=== PATIENT | male | born 1970 | race Two or more races ===

== ENCOUNTER 2019-02-22 07:47 | Emergency (ER) | payer MEDICAID ==
--- NOTE | 2019-02-22 08:28 | EDM.PDOC ---
ED HPI GENERAL MEDICAL PROBLEM - General Chief Complaint: Abdominal Pain Stated Complaint: ABDOMINAL PAIN Time Seen by Provider: 02/22/19 08:25 - History of Present Illness INITIAL COMMENTS - FREE TEXT/NARRATIVE: HISTORY AND PHYSICAL: History of present illness: Patient is a 48-year-old male with history of H. pylori was diagnosed recently and is currently on medications presents with concern of abdominal pain this is epigastric similar to his prior episode with the diagnosis he denies vomiting fever chills chest pain shortness breath or other concern Review of systems: As per history of present illness and below otherwise all systems reviewed and negative. Past medical history: As per history of present illness and as reviewed below otherwise noncontributory. Surgical history: As per history of present illness and as reviewed below otherwise noncontributory. Social history: No reported history of drug or alcohol abuse. Family history: As per history of present illness and as reviewed below otherwise noncontributory. Physical exam: HEENT: Atraumatic, normocephalic, pupils reactive, negative for conjunctival pallor or scleral icterus, mucous membranes moist, throat clear, neck supple, nontender, trachea midline. Lungs: Clear to auscultation, breath sounds equal bilaterally, chest nontender. Heart: S1S2, regular, negative for clicks, rubs, or JVD. Abdomen: Soft, nondistended, nontender. Negative for masses or hepatosplenomegaly. Negative for costovertebral tenderness. Pelvis: Stable nontender. Genitourinary: Deferred. Rectal: Deferred. Extremities: Atraumatic, negative for cords or calf pain. Neurovascular unremarkable. Neuro: Awake, alert, oriented. Cranial nerves II through XII unremarkable. Cerebellum unremarkable. Motor and sensory unremarkable throughout. Exam nonfocal. Diagnostics: CBC CMP lipase Therapeutics: None Impression: #1 history of H. pylori infection #2 chronic intermittent abdominal pain Definitive disposition and diagnosis as appropriate pending reevaluation and review of above. epigastric Pain Score (Numeric/FACES): 9 - Related Data Allergies Allergy/AdvReac Type Severity Reaction Status Date / Time aloe vera [From Flexall] Allergy Hives Verified 02/22/19 07:50 codeine Allergy Hives Verified 02/22/19 07:50 Fish Containing Products Allergy Anaphylactic Verified 02/22/19 07:50 Shock fish derived Allergy Swelling Verified 02/22/19 07:50 ibuprofen Allergy Bleeding Verified 02/22/19 07:50 menthol [From Flexall] Allergy Hives Verified 02/22/19 07:50 methocarbamol Allergy Nausea and Verified 02/22/19 07:50 Vomiting NSAIDS (Non-Steroidal Allergy Bleeding Verified 02/22/19 07:50 Anti-Inflamma ondansetron [From Zofran] Allergy Anxiety Verified 02/22/19 07:50 Sulfa (Sulfonamide Allergy Rash Verified 02/22/19 07:50 Antibiotics) Home Meds: Home Meds Albuterol [Proair HFA] 1 dose INH ASDIRECTED PRN 02/18/18 [History] Fluticasone/Salmeterol [Advair 250-50 Diskus] 1 dose INH BID 02/18/18 [History] Ipratropium [Atrovent HFA] 1 dose INH QID 02/18/18 [History] LORazepam [Ativan] 0.5 mg PO ASDIRECTED PRN 07/05/18 [History] Losartan [Cozaar] 25 mg PO DAILY 07/05/18 [History] Simvastatin [Zocor] 10 mg PO BEDTIME 07/05/18 [History] Insulin Detemir [Levemir Flextouch] 35 units SUBCUT BEDTIME 07/20/18 [History] Ranitidine HCl [Zantac] 150 mg PO DAILY 07/20/18 [History] Acetaminophen/HYDROcodone [[place] 325-5 MG] 1 dose PO Q4H #30 tablet 12/25/18 [Rx ] Past Medical History HEENT History: Reports: Other (See Below) Other HEENT History: reading glasses Cardiovascular History: Reports: High Cholesterol, Hypertension Respiratory History: Reports: Asthma, COPD, Pneumonia, Recurrent Gastrointestinal History: Reports: Cirrhosis, GERD, Irritable Bowel Syndrome Other Gastrointestinal History: hx of stomach ulcer Genitourinary History: Reports: None Musculoskeletal History: Reports: Arthritis, Back Pain, Chronic Neurological History: Reports: Migraines Psychiatric History: Reports: Anxiety, Bipolar, Depression, PTSD, Suicide Attempt Endocrine/Metabolic History: Reports: Diabetes, Type II Hematologic History: Reports: None Immunologic History: Reports: None Oncologic (Cancer) History: Reports: None Dermatologic History: Reports: None - Infectious Disease History Infectious Disease History: Reports: None - Past Surgical History Head Surgeries/Procedures: Reports: None HEENT Surgical History: Reports: Oral Surgery Cardiovascular Surgical History: Reports: None Respiratory Surgical History: Reports: None GI Surgical History: Reports: Colonoscopy Male Surgical History: Reports: None Endocrine Surgical History: Reports: None Neurological Surgical History: Reports: None Musculoskeletal Surgical History: Reports: Other (See Below) Other Musculoskeletal Surgeries/Procedures:: hx lt thumb pinning Oncologic Surgical History: Reports: None Dermatological Surgical History: Reports: None Social & Family History - Family History Family Medical History: Noncontributory - Tobacco Use Smoking Status *Q: Current Every Day Smoker Years of Tobacco use: 32 Packs/Tins Daily: 0.4 - Caffeine Use Caffeine Use: Reports: None - Recreational Drug Use Recreational Drug Use: No ED ROS GENERAL - Review of Systems Review Of Systems: ROS reveals no pertinent complaints other than HPI. ED EXAM, GENERAL - Physical Exam Exam: See Below (See dictation) Course - Vital Signs Last Recorded V/S: Last Vital Signs Temp 36.0 C 02/22/19 07:50 Pulse 80 02/22/19 07:50 Resp 18 02/22/19 07:50 BP 170/91 H 02/22/19 07:50 Pulse Ox 96 02/22/19 07:50 - Orders/Labs/Meds Orders: Active Orders 24 hr Category Date Time Status CBC WITH AUTO DIFF [HEME] Stat Lab 02/22/19 08:18 Received COMPREHENSIVE METABOLIC PN,CMP [CHEM] Stat Lab 02/22/19 08:18 Received LIPASE [CHEM] Stat Lab 02/22/19 08:18 Received Departure - Departure Time of Disposition: 08:27 Disposition: Home, Self-Care 01 Condition: Good Clinical Impression: Abdominal pain, History of Helicobacter pylori infection - Discharge Information Referrals: Kim Goodwin [Primary Care Provider] - Additional Instructions: The following information is given to patients seen in the emergency department who are being discharged to home. This information is to outline your options for follow-up care. We provide all patients seen in our emergency department with a follow-up referral. The need for follow-up, as well as the timing and circumstances, are variable depending upon the specifics of your emergency department visit. If you don't have a primary care physician on staff, we will provide you with a referral. We always advise you to contact your personal physician following an emergency department visit to inform them of the circumstance of the visit and for follow-up with them and/or the need for any referrals to a consulting specialist. The emergency department will also refer you to a specialist when appropriate. This referral assures that you have the opportunity for followup care with a specialist. All of these measure are taken in an effort to provide you with optimal care, which includes your followup. Under all circumstances we always encourage you to contact your private physician who remains a resource for coordinating your care. When calling for followup care, please make the office aware that this follow-up is from your recent emergency room visit. If for any reason you are refused follow-up, please contact the [facility] emergency department at and asked to speak to the emergency department charge nurse. [facility] - General Surgery Professional Building [address] [place] [address], [address] [place] [address] Follow-up primary medical doctor general surgery as discussed gastroenterology referral as discussed continue current medications return as needed as discussed - My Orders Last 24 Hours: My Active Orders 02/22/19 08:18 CBC WITH AUTO DIFF [HEME] Stat COMPREHENSIVE METABOLIC PN,CMP [CHEM] Stat LIPASE [CHEM] Stat - Assessment/Plan Last 24 Hours: My Active Orders 02/22/19 08:18 CBC WITH AUTO DIFF [HEME] Stat COMPREHENSIVE METABOLIC PN,CMP [CHEM] Stat LIPASE [CHEM] Stat
[2019-02-22 08:48] LABS: CHLORIDE,CL 104 mmol/L (98-107); SODIUM,NA 138 mmol/L (136-148)
== END 2019-02-22 09:15 | disposition home or self-care (01) ==
LOC: MW.ED 07:47
DX: R10.13 Epigastric pain (principal); E78.00 Pure hypercholesterolemia, unspecified; I10 Essential (primary) hypertension; J44.9 Chronic obstructive pulmonary disease, unspecified; E11.9 Type 2 diabetes mellitus without complications; F17.210 Nicotine dependence, cigarettes, uncomplicated; Z88.8 Allergy status to other drugs, medicaments and biological substances; Z88.2 Allergy status to sulfonamides; Z79.899 Other long term (current) drug therapy; Z79.4 Long term (current) use of insulin; Z86.19 Personal history of other infectious and parasitic diseases
CPT/HCPCS: 36415; 80053; 83690; 85025; 99284

== ENCOUNTER 2022-05-18 16:24 | Emergency (ER) | payer OTHER, MEDICAID ==
[2022-05-18] MEDS ORDERED: Dexamethasone 10 MG/ML SDV IM STA (16:43)
[2022-05-18] MEDS ORDERED: Ketorolac 30 MG/ML SDV IM ONE (16:43)
[2022-05-18] MEDS ORDERED: Acetaminophen/oxyCODONE 325-5 MG Tab PO ONE (18:37)
== END 2022-05-18 20:04 | disposition home or self-care (01) ==
LOC: MW.ED 16:24
DX: S16.1XXA Strain of muscle, fascia and tendon at neck level, initial encounter (principal); E78.00 Pure hypercholesterolemia, unspecified; I10 Essential (primary) hypertension; J44.9 Chronic obstructive pulmonary disease, unspecified; E11.9 Type 2 diabetes mellitus without complications; Z91.048 Other nonmedicinal substance allergy status; Z88.5 Allergy status to narcotic agent; Z91.013 Allergy to seafood; Z88.8 Allergy status to other drugs, medicaments and biological substances; Z88.2 Allergy status to sulfonamides; Z79.4 Long term (current) use of insulin; Z79.899 Other long term (current) drug therapy; W22.09XA Striking against other stationary object, initial encounter
CPT/HCPCS: 72125; 96372; 99283; A9270; J1100; J1885; J3360; 99284

== ENCOUNTER 2023-01-14 00:46 | Emergency (ER) | payer MEDICAID ==
[2023-01-14 02:44] LABS: CARBON DIOXIDE,CO2 24.6 mmol/L (21.0-32.0); POTASSIUM,K 3.7 mmol/L (3.5-5.1)
[2023-01-14] MEDS ORDERED: Acetaminophen/HYDROcodone 325-5 MG Tab PO ONE (04:23)
== END 2023-01-14 04:27 | disposition home or self-care (01) ==
LOC: MW.ED 00:46
DX: M54.9 Dorsalgia, unspecified (principal); M54.2 Cervicalgia; R06.02 Shortness of breath; E78.00 Pure hypercholesterolemia, unspecified; I10 Essential (primary) hypertension; J44.9 Chronic obstructive pulmonary disease, unspecified; K21.9 Gastro-esophageal reflux disease without esophagitis; E11.9 Type 2 diabetes mellitus without complications; Z72.0 Tobacco use; Z88.8 Allergy status to other drugs, medicaments and biological substances; Z88.6 Allergy status to analgesic agent; Z91.048 Other nonmedicinal substance allergy status; Z88.5 Allergy status to narcotic agent; Z88.2 Allergy status to sulfonamides; Z91.013 Allergy to seafood; Z79.899 Other long term (current) drug therapy; Z79.4 Long term (current) use of insulin
CPT/HCPCS: 36415; 80053; 81003; 83690; 85025; 99284; A9270; 99283

== ENCOUNTER 2023-04-06 16:23 | Emergency (ER) | payer MEDICAID | END 2023-04-06 17:57 | disposition home or self-care (01) | LOC: MW.ED 16:23 | DX: M54.50 Low back pain, unspecified (principal); G89.29 Other chronic pain; Z76.0 Encounter for issue of repeat prescription; J44.9 Chronic obstructive pulmonary disease, unspecified; E78.00 Pure hypercholesterolemia, unspecified; I10 Essential (primary) hypertension; E11.9 Type 2 diabetes mellitus without complications; K21.9 Gastro-esophageal reflux disease without esophagitis; Z79.4 Long term (current) use of insulin; Z88.5 Allergy status to narcotic agent; Z91.013 Allergy to seafood; Z88.8 Allergy status to other drugs, medicaments and biological substances; Z91.048 Other nonmedicinal substance allergy status; Z88.2 Allergy status to sulfonamides; Z79.899 Other long term (current) drug therapy | CPT/HCPCS: 99283 ==

== ENCOUNTER 2023-04-12 10:05 | Emergency (ER) | payer MEDICAID | END 2023-04-12 11:11 | disposition home or self-care (01) | LOC: MW.ED 10:05 | DX: K04.7 Periapical abscess without sinus (principal); E11.9 Type 2 diabetes mellitus without complications; J44.9 Chronic obstructive pulmonary disease, unspecified; E78.00 Pure hypercholesterolemia, unspecified; I10 Essential (primary) hypertension; Z79.4 Long term (current) use of insulin; Z79.899 Other long term (current) drug therapy; Z88.6 Allergy status to analgesic agent; Z88.8 Allergy status to other drugs, medicaments and biological substances; Z88.5 Allergy status to narcotic agent; Z91.013 Allergy to seafood; Z88.2 Allergy status to sulfonamides | CPT/HCPCS: 99282 ==

== ENCOUNTER 2023-05-07 14:10 | Emergency (ER) | payer MEDICAID ==
[2023-05-07 14:57] LABS: APPEARANCE,URINE CLEAR; BILIRUBIN,URINE NEGATIVE (NEGATIVE); COLOR,URINE YELLOW; GLUCOSE,URINE >=1000 mg/dL (NEGATIVE); KETONES,URINE NEGATIVE (NEGATIVE); LEUKOCYTE ESTERASE,URINE NEGATIVE (NEGATIVE); NITRITE,URINE NEGATIVE (NEGATIVE); OCCULT BLOOD,URINE NEGATIVE (NEGATIVE); PH,URINE 5.5 (5.0-8.0); PROTEIN,URINE NEGATIVE (NEGATIVE); UROBILINOGEN,URINE 0.2 EU/dL (<2.0)
[2023-05-07 15:04] LABS: AMPHETAMINES SCREEN, URINE NEGATIVE (CUTOFF=500); BARBITURATE SCREEN,URINE NEGATIVE (CUTOFF=200); BENZODIAZEPINES SCREEN,URINE NEGATIVE (CUTOFF=150); BUPRENORPHINE SCREEN,URINE NEGATIVE (CUTOFF=10); METHADONE SCREEN, URINE NEGATIVE (CUTOFF=200); METHAMPHETAMINES SCREEN, URINE NEGATIVE (CUTOFF=500); OXYCODONE SCREEN,URINE NEGATIVE (CUT0FF=100); PCP SCREEN,URINE NEGATIVE (CUTOFF=25); PROPOXYPHENE SCREEN,URINE NEGATIVE (CUTOFF=300); THC SCREEN,URINE 20 NG/ML NEGATIVE (CUTOFF=50)
[2023-05-07] MEDS ORDERED: traMADol 50 MG Tab PO STA (16:26)
== END 2023-05-07 16:56 | disposition home or self-care (01) ==
LOC: MW.ED 14:10
DX: M54.50 Low back pain, unspecified (principal); B00.9 Herpesviral infection, unspecified; G89.29 Other chronic pain; Z76.0 Encounter for issue of repeat prescription; I10 Essential (primary) hypertension; E78.5 Hyperlipidemia, unspecified; E78.00 Pure hypercholesterolemia, unspecified; Z88.5 Allergy status to narcotic agent; Z91.013 Allergy to seafood; Z88.2 Allergy status to sulfonamides; Z88.8 Allergy status to other drugs, medicaments and biological substances; Z79.899 Other long term (current) drug therapy
CPT/HCPCS: 80305; 81003; 82947; 99283; A9270

== ENCOUNTER 2023-06-17 21:01 | Emergency (ER) | payer OTHER, MEDICAID ==
[2023-06-17] MEDS ORDERED: Tetracaine HCl/PF 0.5% 4 ML Bottle EYERT ONE (21:31)
[2023-06-17] MEDS ORDERED: Erythromycin Base 0.5% Ophth Oint 1 GM Tube EYERT ONE (21:37)
== END 2023-06-17 21:52 | disposition home or self-care (01) ==
LOC: MW.ED 21:01
DX: H10.9 Unspecified conjunctivitis (principal); E78.00 Pure hypercholesterolemia, unspecified; I10 Essential (primary) hypertension; J44.9 Chronic obstructive pulmonary disease, unspecified; E11.9 Type 2 diabetes mellitus without complications; F17.210 Nicotine dependence, cigarettes, uncomplicated; Z91.048 Other nonmedicinal substance allergy status; Z88.5 Allergy status to narcotic agent; Z88.1 Allergy status to other antibiotic agents; Z88.8 Allergy status to other drugs, medicaments and biological substances; Z91.013 Allergy to seafood; Z88.6 Allergy status to analgesic agent; Z79.51 Long term (current) use of inhaled steroids; Z79.899 Other long term (current) drug therapy
CPT/HCPCS: 99283; A9270

== ENCOUNTER 2023-08-20 15:21 | Emergency (ER) | payer MEDICAID ==
[2023-08-20] MEDS ORDERED: Amoxicillin 500 MG Cap PO ONE (17:34)
== END 2023-08-20 17:47 | disposition home or self-care (01) ==
LOC: MW.ED 15:21
DX: H66.91 Otitis media, unspecified, right ear (principal); H72.91 Unspecified perforation of tympanic membrane, right ear; I10 Essential (primary) hypertension; E78.00 Pure hypercholesterolemia, unspecified; J44.9 Chronic obstructive pulmonary disease, unspecified; K21.9 Gastro-esophageal reflux disease without esophagitis; M19.90 Unspecified osteoarthritis, unspecified site; E11.9 Type 2 diabetes mellitus without complications; Z88.8 Allergy status to other drugs, medicaments and biological substances; Z88.5 Allergy status to narcotic agent; Z91.048 Other nonmedicinal substance allergy status; Z91.013 Allergy to seafood; Z88.2 Allergy status to sulfonamides; Z88.6 Allergy status to analgesic agent; Z79.899 Other long term (current) drug therapy; Z79.4 Long term (current) use of insulin
CPT/HCPCS: 99283; A9270

== ENCOUNTER 2024-07-20 10:27 | Emergency (ER) | payer MEDICAID ==
[2024-07-20 11:28] LABS: BASOPHILS ABSOLUTE AUTO 0.05 K/uL (0.00-0.20); BASOPHILS PERCENT AUTO 0.6 % (0.0-1.0); EOSINOPHILS ABSOLUTE AUTO 0.18 K/uL (0.00-0.45); EOSINOPHILS PERCENT AUTO 2.3 % (0.0-6.0); HEMATOCRIT 43.6 % (42.0-52.0); IMMATURE GRAN ABSOLUTE AUTO 0.03 K/uL (0.00-0.05); IMMATURE GRAN PERCENT AUTO 0.4 % (0.0-0.4); LYMPHOCYTES ABSOLUTE AUTO 2.08 K/uL (1.00-4.80); LYMPHOCYTES PERCENT AUTO 26.1 % (24.0-44.0); MEAN CORPUSCULAR VOLUME 83.2 fL (83.0-99.0); MEAN PLATELET VOLUME 9.1 fL (9.4-12.4); MONOCYTES ABSOLUTE AUTO 0.67 K/uL (0.00-0.80); MONOCYTES PERCENT AUTO 8.4 % (0.0-8.0); NEUTROPHILS ABSOLUTE AUTO 4.96 K/uL (1.80-7.70); NEUTROPHILS PERCENT AUTO 62.2 % (41.0-71.0); PLATELET COUNT,PLT 282 K/uL (150-400); RED BLOOD CELL COUNT 5.24 M/uL (4.52-5.90); WHITE BLOOD CELL COUNT,WBC 7.97 K/uL (3.9-11.3)
[2024-07-20 12:09] LABS: HEMOGLOBIN 14.6 g/dL (14.0-18.0); MEAN CORPUSCULAR HEMOGLOBIN 27.9 pg (28.0-32.0)
[2024-07-20 12:10] LABS: MEAN CORPUSCULAR HGB CONC 33.6 g/dL (32.0-36.0)
[2024-07-20 12:22] LABS: A/G RATIO 1.1 (0.9-1.6); ALBUMIN 3.8 g/dL (3.4-5.0); BILIRUBIN TOTAL 0.4 mg/dL (0.2-1.0); CALCIUM 9.8 mg/dL (8.5-10.1); CARBON DIOXIDE,CO2 25.5 mmol/L (21.0-32.0); CREATININE 0.9 mg/dL (0.8-1.3); EST CRCL DRUG DOSING (CG) 90.78 mL/min; POTASSIUM,K 3.7 mmol/L (3.5-5.1); PROTEIN TOTAL,TP 7.2 g/dL (6.4-8.2)
== END 2024-07-20 13:16 | disposition home or self-care (01) ==
LOC: MW.ED 10:27
DX: E11.65 Type 2 diabetes mellitus with hyperglycemia (principal); I10 Essential (primary) hypertension; J44.9 Chronic obstructive pulmonary disease, unspecified; E78.00 Pure hypercholesterolemia, unspecified; K21.9 Gastro-esophageal reflux disease without esophagitis; Z79.899 Other long term (current) drug therapy; Z79.4 Long term (current) use of insulin; Z79.84 Long term (current) use of oral hypoglycemic drugs; Z91.048 Other nonmedicinal substance allergy status; Z88.5 Allergy status to narcotic agent; Z91.013 Allergy to seafood; Z75.8 Other problems related to medical facilities and other health care; Z88.2 Allergy status to sulfonamides; Z88.3 Allergy status to other anti-infective agents; Z88.8 Allergy status to other drugs, medicaments and biological substances; Z76.0 Encounter for issue of repeat prescription
CPT/HCPCS: 36415; 80053; 82009; 82947; 83690; 84484; 85025; 99284

== ENCOUNTER 2025-02-09 21:42 | Emergency (ER) | payer MEDICAID ==
[2025-02-09] MEDS: Albuterol/Ipratropium 3.0-0.5 MG/3 ML Neb Soln NEB ONE (22:20)
[2025-02-09] MEDS: methylPREDNISolone Sodium Succinate 125 MG/2 ML SDV IVPUSH ONE (22:20)
[2025-02-09] MEDS: Sodium Chloride 0.9% 1,000 ML IV ONE (22:20)
[2025-02-09 22:24] LABS: BASOPHILS ABSOLUTE AUTO 0.05 K/uL (0.00-0.20); BASOPHILS PERCENT AUTO 0.4 % (0.0-1.0); EOSINOPHILS ABSOLUTE AUTO 0.05 K/uL (0.00-0.45); EOSINOPHILS PERCENT AUTO 0.4 % (0.0-6.0); HEMATOCRIT 43.7 % (42.0-52.0); HEMOGLOBIN 15.4 g/dL (14.0-18.0); IMMATURE GRAN ABSOLUTE AUTO 0.04 K/uL (0.00-0.05); IMMATURE GRAN PERCENT AUTO 0.4 % (0.0-0.4); LYMPHOCYTES ABSOLUTE AUTO 0.96 K/uL (1.00-4.80); LYMPHOCYTES PERCENT AUTO 8.4 % (24.0-44.0); MEAN CORPUSCULAR HEMOGLOBIN 30.1 pg (28.0-32.0); MEAN CORPUSCULAR HGB CONC 35.2 g/dL (32.0-36.0); MEAN CORPUSCULAR VOLUME 85.5 fL (83.0-99.0); MEAN PLATELET VOLUME 8.9 fL (9.4-12.4); MONOCYTES ABSOLUTE AUTO 0.59 K/uL (0.00-0.80); MONOCYTES PERCENT AUTO 5.2 % (0.0-8.0); NEUTROPHILS ABSOLUTE AUTO 9.68 K/uL (1.80-7.70); NEUTROPHILS PERCENT AUTO 85.2 % (41.0-71.0); PLATELET COUNT,PLT 231 K/uL (150-400); RED BLOOD CELL COUNT 5.11 M/uL (4.52-5.90); WHITE BLOOD CELL COUNT,WBC 11.37 K/uL (3.9-11.3)
[2025-02-09 22:26] LABS: APPEARANCE,URINE CLEAR; BILIRUBIN,URINE NEGATIVE (NEGATIVE); COLOR,URINE YELLOW; GLUCOSE,URINE >=1000 mg/dL (NEGATIVE); KETONES,URINE TRACE mg/dL (NEGATIVE); LEUKOCYTE ESTERASE,URINE NEGATIVE (NEGATIVE); NITRITE,URINE NEGATIVE (NEGATIVE); OCCULT BLOOD,URINE NEGATIVE (NEGATIVE); PH,URINE 5.5 (5.0-8.0); PROTEIN,URINE NEGATIVE (NEGATIVE); UROBILINOGEN,URINE 0.2 EU/dL (<2.0)
[2025-02-09 22:42] LABS: HEMOGLOBIN A1C 9.8 %; INR 1.01 (0.86-1.11)
[2025-02-09 22:59] LABS: ALANINE AMINOTRANSFERASE,ALT 39 IU/L (14-63); ALBUMIN 3.6 g/dL (3.4-5.0); ALKALINE PHOSPHATASE 150 U/L (46-116); ASPARTATE AMNIOTRANSFERASE,AST 23 IU/L (15-37); BILIRUBIN TOTAL 0.4 mg/dL (0.2-1.0); BLOOD UREA NITROGEN,BUN 14 mg/dL (7.0-18.0); CALCIUM 8.6 mg/dL (8.5-10.1); CARBON DIOXIDE,CO2 23.4 mmol/L (21.0-32.0); CHLORIDE,CL 102 mmol/L (98-107); ESTIMATED GFR 89 mL/min (>60); GLUCOSE RANDOM 374 mg/dL (74-106); PRO B-TYPE NATRIUR PEPT,BNPPRO 31 pg/mL (0-125); PROTEIN TOTAL,TP 7.2 g/dL (6.4-8.2); SODIUM,NA 136 mmol/L (136-148)
[2025-02-10 00:23] LABS: CORONAVIRUS COVID-19 NAA NEGATIVE (NEGATIVE); INFLUENZA A NAA NEGATIVE (NEGATIVE); INFLUENZA B NAA NEGATIVE (NEGATIVE); RESPIRATORY SYNCYTIAL VIR NAA NEGATIVE (NEGATIVE)
[2025-02-10] MEDS: Sodium Chloride 0.9% 1,000 ML IV ONE (00:37)
[2025-02-10] MEDS: cefTRIAXone 2 GM in Water For Injection, Sterile 20 ML IVPUSH ONE (00:38)
[2025-02-10] MEDS: Doxycycline 100 MG in Sodium Chloride 0.9% 100 ML IV ONE (00:43)
[2025-02-10] MEDS: Acetaminophen 500 MG Tab PO ONE (01:13)
[2025-02-10] MEDS ORDERED: Iopamidol 755 MG/ML 500 ML Multipack Bottle IVPUSH ONE (01:26)
== END 2025-02-10 01:45 | disposition left against medical advice (07) ==
LOC: MW.ED 21:42
DX: J18.9 Pneumonia, unspecified organism (principal); E11.65 Type 2 diabetes mellitus with hyperglycemia; E86.0 Dehydration; R04.2 Hemoptysis; E78.00 Pure hypercholesterolemia, unspecified; I10 Essential (primary) hypertension; J44.89 Other specified chronic obstructive pulmonary disease; K21.9 Gastro-esophageal reflux disease without esophagitis; Z91.018 Allergy to other foods; Z88.5 Allergy status to narcotic agent; Z91.013 Allergy to seafood; Z88.2 Allergy status to sulfonamides; Z88.8 Allergy status to other drugs, medicaments and biological substances; Z88.6 Allergy status to analgesic agent; Z79.51 Long term (current) use of inhaled steroids; Z79.899 Other long term (current) drug therapy; Z79.4 Long term (current) use of insulin
CPT/HCPCS: 0241U; 36415; 71045; 80053; 81003; 83036; 83735; 83880; 85025; 85610; 87040; 87651; 96361; 96365; 96375; 99285; A9270; J0696; J2919; J3490; J7030; J7620; 99284

== ENCOUNTER 2025-07-07 11:55 | Emergency (ER) | payer MEDICAID ==
[2025-07-07] MEDS: Benzocaine 20% Topical Spray UD MUCMEM ONE (13:14)
[2025-07-07] MEDS: Lidocaine 2% Viscous Solution 15 ML UD PO ONE (13:15)
== END 2025-07-07 13:32 | disposition home or self-care (01) ==
LOC: MW.ED 11:55
DX: K02.9 Dental caries, unspecified (principal); I10 Essential (primary) hypertension; E11.9 Type 2 diabetes mellitus without complications; Z88.5 Allergy status to narcotic agent; Z88.2 Allergy status to sulfonamides; Z79.4 Long term (current) use of insulin; Z79.899 Other long term (current) drug therapy
CPT/HCPCS: 99282; A9270; J3490; 99283

== ENCOUNTER 2025-09-13 02:37 | Emergency (ER) | payer MEDICAID ==
[2025-09-13 03:05] LABS: BASOPHILS ABSOLUTE AUTO 0.04 K/uL (0.00-0.20); BASOPHILS PERCENT AUTO 0.6 % (0.0-1.0); EOSINOPHILS ABSOLUTE AUTO 0.17 K/uL (0.00-0.45); EOSINOPHILS PERCENT AUTO 2.4 % (0.0-6.0); IMMATURE GRAN ABSOLUTE AUTO 0.01 K/uL (0.00-0.05); IMMATURE GRAN PERCENT AUTO 0.1 % (0.0-0.4); LYMPHOCYTES ABSOLUTE AUTO 2.11 K/uL (1.00-4.80); LYMPHOCYTES PERCENT AUTO 29.4 % (24.0-44.0); MEAN PLATELET VOLUME 8.8 fL (9.4-12.4); MONOCYTES ABSOLUTE AUTO 0.61 K/uL (0.00-0.80); MONOCYTES PERCENT AUTO 8.5 % (0.0-8.0); NEUTROPHILS ABSOLUTE AUTO 4.23 K/uL (1.80-7.70); NEUTROPHILS PERCENT AUTO 59.0 % (41.0-71.0); NRBC ABSOLUTE 0.00 K/uL (0.00-0.02); NRBC PERCENT 0.0 /100WBC (0.0-0.2); PLATELET COUNT,PLT 237 K/uL (150-400); RED BLOOD CELL COUNT 4.36 M/uL (4.52-5.90); WHITE BLOOD CELL COUNT,WBC 7.17 K/uL (3.9-11.3)
[2025-09-13] MEDS: Ketorolac 30 MG/ML SDV IVPUSH ONE (03:28)
[2025-09-13 04:02] LABS: APPEARANCE,URINE CLEAR; GLUCOSE,URINE NEGATIVE (NEGATIVE); OCCULT BLOOD,URINE NEGATIVE (NEGATIVE)
[2025-09-13 04:45] LABS: A/G RATIO 1.0 (0.9-1.6); ALANINE AMINOTRANSFERASE,ALT 32.0 IU/L (14-63); ASPARTATE AMNIOTRANSFERASE,AST 17.0 IU/L (15-37); BILIRUBIN TOTAL 0.2 mg/dL (0.2-1.0); BLOOD UREA NITROGEN,BUN 24.0 mg/dL (7.0-18.0); CARBON DIOXIDE,CO2 22.8 mmol/L (21.0-32.0); CHLORIDE,CL 107.0 mmol/L (98-107); CREATININE 0.9 mg/dL (0.8-1.3); EST CRCL DRUG DOSING (CG) 80.67 mL/min; GLUCOSE RANDOM 232.0 mg/dL (74-106); POTASSIUM,K 4.2 mmol/L (3.5-5.1); PROTEIN TOTAL,TP 6.9 g/dL (6.4-8.2); SODIUM,NA 140.0 mmol/L (136-148)
[2025-09-13 04:47] LABS: ESTIMATED GFR 101.0 mL/min (>60)
[2025-09-13] MEDS: Iopamidol 755 MG/ML 500 ML Multipack Bottle IVPUSH STA (04:59)
== END 2025-09-13 05:39 | disposition home or self-care (01) ==
LOC: MW.ED 02:37
DX: R10.10 Upper abdominal pain, unspecified (principal); M54.9 Dorsalgia, unspecified; I10 Essential (primary) hypertension; E78.00 Pure hypercholesterolemia, unspecified; E11.9 Type 2 diabetes mellitus without complications; J44.9 Chronic obstructive pulmonary disease, unspecified; J45.909 Unspecified asthma, uncomplicated; F17.200 Nicotine dependence, unspecified, uncomplicated; M19.90 Unspecified osteoarthritis, unspecified site; Z79.899 Other long term (current) drug therapy; Z79.4 Long term (current) use of insulin; Z88.8 Allergy status to other drugs, medicaments and biological substances; Z91.013 Allergy to seafood; Z88.2 Allergy status to sulfonamides; Z88.5 Allergy status to narcotic agent
CPT/HCPCS: 36415; 71045; 74177; 80053; 81003; 83690; 84484; 85025; 93005; 96374; 96375; 99285; A9270; J1885; J3360; Q9967; 99283

== ENCOUNTER 2025-09-16 22:16 | Inpatient (IN) | payer MEDICAID ==
[2025-09-17 00:29] LABS: APPEARANCE,URINE CLEAR; GLUCOSE,URINE >=1000 mg/dL (NEGATIVE); OCCULT BLOOD,URINE NEGATIVE (NEGATIVE)
[2025-09-17] MEDS: Ondansetron 4 MG Tab.DIS PO ONE (00:39)
[2025-09-17] MEDS: Dexamethasone Sod Phos Preservative Free 10 MG/ML Vial IVPUSH ONE (00:39)
[2025-09-17 01:10] LABS: BASOPHILS ABSOLUTE AUTO 0.03 K/uL (0.00-0.20); BASOPHILS PERCENT AUTO 0.3 % (0.0-1.0); EOSINOPHILS ABSOLUTE AUTO 0.10 K/uL (0.00-0.45); EOSINOPHILS PERCENT AUTO 0.9 % (0.0-6.0); IMMATURE GRAN ABSOLUTE AUTO 0.02 K/uL (0.00-0.05); IMMATURE GRAN PERCENT AUTO 0.2 % (0.0-0.4); LYMPHOCYTES ABSOLUTE AUTO 2.27 K/uL (1.00-4.80); LYMPHOCYTES PERCENT AUTO 21.2 % (24.0-44.0); MEAN PLATELET VOLUME 8.6 fL (9.4-12.4); MONOCYTES ABSOLUTE AUTO 0.53 K/uL (0.00-0.80); MONOCYTES PERCENT AUTO 5.0 % (0.0-8.0); NEUTROPHILS ABSOLUTE AUTO 7.75 K/uL (1.80-7.70); NEUTROPHILS PERCENT AUTO 72.4 % (41.0-71.0); NRBC ABSOLUTE 0.00 K/uL (0.00-0.02); NRBC PERCENT 0.0 /100WBC (0.0-0.2); PLATELET COUNT,PLT 279 K/uL (150-400); RED BLOOD CELL COUNT 5.24 M/uL (4.52-5.90); WHITE BLOOD CELL COUNT,WBC 10.70 K/uL (3.9-11.3)
[2025-09-17 01:35] LABS: A/G RATIO 0.9 (0.9-1.6); ALANINE AMINOTRANSFERASE,ALT 41 IU/L (14-63); ASPARTATE AMNIOTRANSFERASE,AST 14 IU/L (15-37); BILIRUBIN TOTAL 0.2 mg/dL (0.2-1.0); BLOOD UREA NITROGEN,BUN 26 mg/dL (7.0-18.0); CARBON DIOXIDE,CO2 19.5 mmol/L (21.0-32.0); CHLORIDE,CL 103 mmol/L (98-107); CREATININE 0.9 mg/dL (0.8-1.3); GLUCOSE RANDOM 227 mg/dL (74-106); POTASSIUM,K 4.0 mmol/L (3.5-5.1); PROTEIN TOTAL,TP 7.8 g/dL (6.4-8.2); SODIUM,NA 136 mmol/L (136-148)
[2025-09-17 02:00] LABS: ESTIMATED GFR 101 mL/min (>60)
[2025-09-17] MEDS ORDERED: Naloxone 0.4 MG/ML SDV IVPUSH PRN (02:08)
[2025-09-17] MEDS ORDERED: 50% Dextrose in Water 50 ML Syringe IVPUSH PRN (02:11)
[2025-09-17] MEDS: Insulin Glargine,Human Rec. Analog 100 Units/ML 3 ML Pen SUBCUT STA (08:40)
[2025-09-17 09:40] LABS: APPEARANCE,URINE CLEAR; GLUCOSE,URINE >=1000 mg/dL (NEGATIVE); OCCULT BLOOD,URINE NEGATIVE (NEGATIVE)
== END 2025-09-17 14:44 | disposition home or self-care (01) | DRG 552 ==
LOC: MW.ED 22:16 → MW.MS 09-17 00:50
PROVIDERS: ADMIT Internal Medicine; ATTEND Internal Medicine
DX: M54.41 Lumbago with sciatica, right side (principal); E11.9 Type 2 diabetes mellitus without complications; F17.200 Nicotine dependence, unspecified, uncomplicated; E78.00 Pure hypercholesterolemia, unspecified; I10 Essential (primary) hypertension; J44.9 Chronic obstructive pulmonary disease, unspecified; K21.9 Gastro-esophageal reflux disease without esophagitis; M19.90 Unspecified osteoarthritis, unspecified site; M54.9 Dorsalgia, unspecified; G89.29 Other chronic pain; G43.909 Migraine, unspecified, not intractable, without status migrainosus; F31.9 Bipolar disorder, unspecified; F41.9 Anxiety disorder, unspecified; Z98.890 Other specified postprocedural states; Z88.8 Allergy status to other drugs, medicaments and biological substances; Z88.2 Allergy status to sulfonamides; Z79.899 Other long term (current) drug therapy; Z79.4 Long term (current) use of insulin
CPT/HCPCS: 36415; 80053; 81003; 82947; 83036; 85025; 96374; 96375; 99284-25; A9270-GY; J1100; J1171; J1815-GY